=== PATIENT | male | born 1950 | race Caucasian/White ===

== ENCOUNTER 2021-09-13 09:53 | Outpatient (CLI) | payer MEDICARE ==
[2021-09-13 13:12] LABS: Hemoglobin A1c 6.4 % (4.0-6.0)
[2021-09-13 13:31] LABS: ALT (SGPT) 40 U/L (8-55); AST (SGOT) 27 U/L (5-34); Albumin 4.5 g/dL (3.4-4.8); Alkaline Phosphatase 82 U/L (40-110); Anion Gap 12 mmol/L (10-20); BUN (Urea Nitrogen) 19 mg/dL (8.4-25.7); Bilirubin, Total 0.6 mg/dL (0.2-1.2); Calc. Creatinine Clearance 0 mL/min (70-130); Calcium 9.6 mg/dL (7.8-10.44); Carbon Dioxide 27 mmol/L (23-31); Cardiac Risk 3.9 (Less than 4.5); Chloride 105 mmol/L (98-107); Cholesterol 209 mg/dl (< 200 Desired); Glucose 131 mg/dL (80-115); HDL Cholesterol 54 mg/dL (>60 Neg Risk); LDL Cholesterol, Calculated 124 mg/dL; Potassium 4.5 mmol/L (3.5-5.1); Protein, Total 7.5 g/dL (5.8-8.1); Sodium 139 mmol/L (136-145); Triglycerides 153 mg/dL (Less than 150); Uric Acid 5.8 mg/dL (3.5-7.2)
== END 2021-09-13 09:54 | disposition home or self-care (01) ==
LOC: SCSRAD 09:53
PROVIDERS: ATTEND Family Medicine
DX: Z12.5 Encounter for screening for malignant neoplasm of prostate (principal); M25.561 Pain in right knee; M10.9 Gout, unspecified; E78.5 Hyperlipidemia, unspecified; R73.03 Prediabetes
CPT/HCPCS: 36415; 80053; 80061; 83036; 84550; G0103

== ENCOUNTER 2022-07-11 21:15 | Inpatient (IN) | payer MEDICARE ==
[~2022-07-11 21:15] MED LIST: Iopamidol-370 76% 500 ML 1 ML ONE
[2022-07-11] MEDS ORDERED: Ondansetron PF 4 MG/2 ML Vial IVP PRN (22:16)
[2022-07-11] MEDS ORDERED: Ondansetron ODT 4 MG TAB PO PRN ×2 (22:16→22:33)
[2022-07-11] MEDS ORDERED: Acetaminophen 325 MG TAB PO PRN (22:16)
[2022-07-11] MEDS ORDERED: Amiodarone 450 MG in Dextrose 5% in Water 250 ML IVPB SCH (22:30)
[2022-07-11] MEDS ORDERED: Diltiazem 125 MG in Sodium Chloride 0.9% 100 ML IVPB SCH (22:30)
[2022-07-11] MEDS ORDERED: Lorazepam 2 MG/ML VIAL IM PRN (22:33)
[2022-07-11] MEDS ORDERED: Lorazepam 1 MG TAB PO PRN (22:33)
[2022-07-11] MEDS ORDERED: Digoxin 0.5 MG/2 ML AMP ONE (22:34)
[2022-07-11] MEDS ORDERED: Electrolyte Replacement Protocol 1 EACH FS PRN (22:45)
[2022-07-11] MEDS ORDERED: Thiamine HCl 200 MG/2 ML VIAL SLOW IVP SCH (23:00)
[2022-07-11 23:29] LABS: SARS-CoV-2 NAA Rapid Test Not Detected (NotDetected)
[2022-07-11 23:34] LABS: Magnesium 2.2 mg/dL (1.6-2.6)
[2022-07-11 23:37] LABS: Troponin I 0.041 ng/mL (< 0.028)
[2022-07-12] MEDS ORDERED: Dextrose 5%-Lactated Ringers 1,000 ML IV SCH (00:01)
[2022-07-12 00:08] VITALS: BMI 33.8
[2022-07-12] MEDS ORDERED: Lactated Ringer's 1,000 ML IV SCH (01:00)
[2022-07-12 02:04] LABS: Troponin I 0.035 ng/mL (< 0.028)
[2022-07-12 04:25] LABS: #Eosinphils 0.1 thou/uL (0.0-0.7); #Lymphocytes 2.4 thou/uL (1.20-3.40); #Monocytes 0.6 thou/uL (0.11-0.59); #Neutrophils 3.7 thou/uL (1.40-6.50); %Basophils 0.4 % (0.0-1.0); %Lymphocytes 35.2 % (21.0-51.0); %Monocytes 8.2 % (0.0-10.0); %Neutrophils 54.3 % (42.0-75.0); Hemoglobin 14.1 g/dL (14.0-18.0); Mean Corpuscular Hemoglobin 34.1 pg (27.0-31.0); Mean Platelet Volume 7.5 fL (7.4-10.4); Platelet Count 175 10x3/uL (130-400); RBC Distribution Width 12.4 % (11.5-14.5); Red Blood Cell (RBC) Count 4.13 mill/uL (4.70-6.10); White Blood Cell (WBC) Count 6.9 10x3/uL (4.8-10.8)
[2022-07-12 04:36] LABS: Anion Gap 11 mmol/L (10-20); BUN (Urea Nitrogen) 15 mg/dL (8.4-25.7); Calc. Creatinine Clearance 131 mL/min (70-130); Calcium 8.9 mg/dL (7.8-10.44); Carbon Dioxide 24 mmol/L (23-31); Chloride 106 mmol/L (98-107); Estimated GFR 96; Glucose 121 mg/dL (80-115); Sodium 137 mmol/L (136-145)
[2022-07-12] MEDS ORDERED: Dronedarone HCl 400 MG TAB PO SCH (08:00)
[2022-07-12] MEDS ORDERED: Apixaban 5 MG TAB PO SCH (09:00)
[2022-07-12] MEDS ORDERED: Folic Acid 1 MG TAB PO SCH (09:00)
[2022-07-12] MEDS ORDERED: Multivit, Therapeutic 1 TAB PO SCH (09:00)
[2022-07-12] MEDS ORDERED: Famotidine 20 MG TAB PO SCH (09:00)
[2022-07-12] MEDS ORDERED: Allopurinol 300 MG TAB PO SCH (09:00)
[2022-07-12] MEDS ORDERED: Lisinopril/Hydrochlorothiazide 10 mg/12.5 mg Tablet PO SCH (09:00)
[2022-07-12] MEDS ORDERED: Famotidine/PF 20 mg/2ml Vial SLOW IVP SCH (09:00)
[2022-07-12 10:52] LABS: Syphilis Antibody Nonreactive (Nonreactive); Syphilis Antibody Index 0.03 S/CO (<1.00 Non-Reactive)
[2022-07-12 11:30] VITALS: BP 134/76
[2022-07-12 15:44] VITALS: TEMP 97.6
[2022-07-12] MEDS ORDERED: Lisinopril 20 MG TAB PO SCH (21:00)
[2022-07-12] MEDS ORDERED: Atorvastatin Calcium 10 MG TAB PO SCH (21:00)
[2022-07-12] MEDS ORDERED: Lorazepam 1 MG TAB PO PRN (22:33)
[2022-07-13] MEDS ORDERED: Lorazepam 1 MG TAB PO PRN (22:33)
[2022-07-14] MEDS ORDERED: Lorazepam 0.5 MG TAB PO PRN (22:33)
[2022-07-14] MEDS ORDERED: Thiamine 100 MG TAB PO SCH (23:00)
== END 2022-07-12 17:23 | disposition home or self-care (01) | DRG 310 ==
LOC: ERS 21:15 → IMCU/EMU 22:16
PROVIDERS: ADMIT Hospitalist; ATTEND Hospitalist
DX: I48.92 Unspecified atrial flutter (principal); Z20.822 Contact with and (suspected) exposure to COVID-19; E78.5 Hyperlipidemia, unspecified; I10 Essential (primary) hypertension; F17.290 Nicotine dependence, other tobacco product, uncomplicated; R73.03 Prediabetes; M10.9 Gout, unspecified; K63.5 Polyp of colon; F32.A Depression, unspecified; I48.91 Unspecified atrial fibrillation; F10.10 Alcohol abuse, uncomplicated; Z88.0 Allergy status to penicillin; Z79.899 Other long term (current) drug therapy; Z79.84 Long term (current) use of oral hypoglycemic drugs; Z98.890 Other specified postprocedural states
CPT/HCPCS: 36415; 71045; 71275; 80048; 80053; 80307; 82550; 82553; 83605; 83690; 83735; 83880; 84443; 84484; 85025; 85610; 85730; 86780; 93005; 93306; J0282; J0283; J1160; J3411; J3475; J3490; J7120; Q9967